=== PATIENT | female | born 1965 | race African-American/Black ===

== ENCOUNTER 2018-04-20 06:47 | Day surgery (SDC) | payer OTHER, BC ==
[2018-04-20] MEDS ORDERED: LIDOCAINE 4% SOLUTION 50 ML BTL (08:48)
[2018-04-20] MEDS ORDERED: MIDAZOLAM 1 MG/ML 2 ML INJ ×3 (10:02→10:03)
[2018-04-20] MEDS ORDERED: FENTAnyl 50 MCG/ML VIAL ×2 (10:03)
== END 2018-04-20 14:03 | disposition home or self-care (01) ==
LOC: GIL 06:47
DX: D12.0 Benign neoplasm of cecum (principal); D12.3 Benign neoplasm of transverse colon; K29.80 Duodenitis without bleeding; K25.9 Gastric ulcer, unspecified as acute or chronic, without hemorrhage or perforation; K29.70 Gastritis, unspecified, without bleeding
CPT/HCPCS: 43239; 88307; 88312